=== PATIENT | female | born 1975 | race Caucasian/White ===

== ENCOUNTER 2016-11-29 15:41 | Inpatient (IN) | payer BC ==
--- NOTE | 2016-11-29 16:26 | EDPHY ---
H & P Smoking Status: Former smoker Time Seen by Provider: 11/29/16 15:58 HPI/ROS: CHIEF COMPLAINT: Anxiety, depression HISTORY OF PRESENT ILLNESS: 41-year-old female presents to the emergency department by private vehicle complaining of feeling extremely anxious. The patient states over last several months she has felt like she was on the verge of having a panic attack. She has been extremely stressed and overwhelmed. She has never been diagnosed with depression or anxiety. The patient denies suicidal ideation although she does wish that "someone would just come up behind me and put a gun to my head." She denies auditory or visual hallucinations. She denies homicidal ideation. She denies neck or back pain. Denies any other reported trauma. REVIEW OF SYSTEMS: Constitutional: No fever, no chills. Eyes: No double or blurry vision. ENT: No sore throat. Respiratory: No cough, no shortness of breath. Cardiac: No chest pain. Gastrointestinal: No abdominal pain, vomiting or diarrhea. Genitourinary: No dysuria. Musculoskeletal: No neck or back pain. Skin: No rashes. Neurological: No headache. (Jackelyn Tran) Past Medical/Surgical History: Tonsillectomy, , benign stomach tumor, osteoarthritis (Jackelyn Tran) Social History: (Jackelyn Tran) Physical Exam: General Appearance: Alert. Tearful, anxious Eyes: Pupils equal and round. Extraocular motions are all intact. ENT: Mouth: Mucous membranes moist. Respiratory: No wheezing, rhonchi, or rales, lungs are clear to auscultation. Cardiovascular: Regular rate and rhythm. Gastrointestinal: Abdomen is soft and nontender, no masses, no rebound or guarding, bowel sounds normal. Neurological: Alert and oriented x 3, cranial nerves II through XII grossly intact Skin: Warm and dry, no rashes. Musculoskeletal: Nontender to palpate along the cervical, thoracic or lumbar spine. Neck is supple. Extremities: Full range of motion and no peripheral edema. Psychiatric: Patient is oriented X 3, there is no agitation. (Jackelyn Tran) Constitutional: Initial Vital Signs Temperature (C) 36.8 C 11/29/16 15:46 Heart Rate 88 11/29/16 15:46 Respiratory Rate 18 11/29/16 15:46 Blood Pressure 160/128 H 11/29/16 15:46 O2 Sat (%) 96 11/29/16 15:46 O2 Delivery Mode Room Air Allergies/Adverse Reactions: No Known Allergies Allergy (Unverified 11/29/16 15:51) Home Medications: Medication Instructions Recorded NK [No Known Home Meds] 11/29/16 Medical Decision Making ED Course/Re-evaluation: 41-year-old female presents to the emergency department feeling extremely anxious and depressed. She has expressed suicidal ideation. She was evaluated by mental health and placed on an M1 hold. She is awaiting inpatient mental health placement. Patient will be admitted to Behavioral Health unit at [facility]. (Jackelyn Tran) Differential Diagnosis: Depression including functional and major depression, situational depression, medication side effect, drugs and alcohol abuse. (Jackelyn Tran) Other Provider: PHYSICIAN DOCUMENTATION: The patient was evaluated and managed by the Physician Drum Attendant and myself. I have reviewed the chart and agree with the findings and plan of care as documented. In addition, I examined the patient myself at 2027. History confirmed as patient expressing a desire to and unable to function. Placed on a mental health hold for danger to self and grave disability. Physical findings as follows: She feels exhausted now but is definitely calmer than on arrival. The patient will be transferred to [facility] for inpatient psychiatric hospital bed not available at this facility, in stable condition; accepting physician is Dr. Poon; 2100. I am the secondary supervising physician. (Tim Mckinley) - Data Points Laboratory Results: Laboratory Results 11/29/16 16:45 11/29/16 16:45 11/29/16 11/29/16 11/29/16 16:45 16:45 16:45 WBC RBC Hgb Hct MCV MCH MCHC RDW Plt Count MPV Neut % (Auto) Lymph % (Auto) [place] % (Auto) Eos % (Auto) Baso % (Auto) Nucleat RBC Rel Count Absolute Neuts (auto) Absolute Lymphs (auto) Absolute Monos (auto) Absolute Eos (auto) Absolute Basos (auto) Absolute Nucleated RBC Immature Gran % Immature Gran # Sodium 143 mEq/L mEq/L (134-144) Potassium 4.2 mEq/L mEq/L (3.5-5.2) Chloride 108 mEq/L mEq/L (97-110) Carbon Dioxide 23 mEq/l mEq/l (22-31) Anion Gap 12 mEq/L mEq/L (8-16) BUN 11 mg/dL mg/dL (7-23) Creatinine 0.8 mg/dL mg/dL (0.6-1.0) Estimated GFR > 60 Glucose 94 mg/dL mg/dL (70-100) Calcium 9.4 mg/dL mg/dL (8.5-10.4) TSH 2.830 uIU/mL uIU/mL (0.465-4.680) Beta HCG, Qual NEGATIVE Urine Opiates Screen NEGATIVE (NEGATIVE) Urine Barbiturates NEGATIVE (NEGATIVE) Ur Phencyclidine Scrn NEGATIVE (NEGATIVE) Ur Amphetamine Screen NEGATIVE (NEGATIVE) U Benzodiazepines Scrn NEGATIVE (NEGATIVE) Urine Cocaine Screen NEGATIVE (NEGATIVE) U Marijuana (THC) Screen NEGATIVE (NEGATIVE) 11/29/16 16:45 WBC 10.81 10^3/uL H 10^3/uL (3.80-9.50) RBC 4.52 10^6/uL 10^6/uL (4.18-5.33) Hgb 14.6 g/dL g/dL (12.6-16.3) Hct 41.1 % % (38.0-47.0) MCV 90.9 fL fL (81.5-99.8) MCH 32.3 pg pg (27.9-34.1) MCHC 35.5 g/dL g/dL (32.4-36.7) RDW 11.9 % % (11.5-15.2) Plt Count 239 10^3/uL 10^3/uL (150-400) MPV 9.4 fL fL (8.7-11.7) Neut % (Auto) 68.9 % % (39.3-74.2) Lymph % (Auto) 23.6 % % (15.0-45.0) [place] % (Auto) 5.9 % % (4.5-13.0) Eos % (Auto) 0.8 % % (0.6-7.6) Baso % (Auto) 0.5 % % (0.3-1.7) Nucleat RBC Rel Count 0.0 % % (0.0-0.2) Absolute Neuts (auto) 7.45 10^3/uL H 10^3/uL (1.70-6.50) Absolute Lymphs (auto) 2.55 10^3/uL 10^3/uL (1.00-3.00) Absolute Monos (auto) 0.64 10^3/uL 10^3/uL (0.30-0.80) Absolute Eos (auto) 0.09 10^3/uL 10^3/uL (0.03-0.40) Absolute Basos (auto) 0.05 10^3/uL 10^3/uL (0.02-0.10) Absolute Nucleated RBC 0.00 10^3/uL 10^3/uL (0-0.01) Immature Gran % 0.3 % % (0.0-1.1) Immature Gran # 0.03 10^3/uL 10^3/uL (0.00-0.10) Sodium Potassium Chloride Carbon Dioxide Anion Gap BUN Creatinine Estimated GFR Glucose Calcium TSH Beta HCG, Qual Urine Opiates Screen Urine Barbiturates Ur Phencyclidine Scrn Ur Amphetamine Screen U Benzodiazepines Scrn Urine Cocaine Screen U Marijuana (THC) Screen Medications Given: Discontinued Medications Lorazepam (Ativan) 1 mg PO EDNOW ONE Stop: 11/29/16 17:58 Last Admin: 11/29/16 19:43 Dose: 1 mg Departure - Departure Disposition: [facility] IP Clinical Impression: Anxiety Depression Qualifiers: Depression Type: unspecified Qualified Code(s): F32.9 - Major depressive disorder, single episode, unspecified Condition: Good
[2016-11-29 17:05] LABS: % IMMATURE GRANULYOCYTES 0.3 % (0.0-1.1); ABSOLUTE IMMATURE GRANULOCYTES 0.03 10^3/uL (0.00-0.10); ADD DIFF? NO; ADD MORPH? NO; ADD SCAN? NO; ATYPICAL LYMPHOCYTE FLAG 10 (0-99); FRAGMENT RBC FLAG 0 (0-99); HEMATOCRIT 41.1 % (38.0-47.0); HEMOGLOBIN 14.6 g/dL (12.6-16.3); LEFT SHIFT FLG 0 (0-99); LIPEMIA HEMOLYSIS FLAG 90 (0-99); MEAN CELL HEMOGLOBIN 32.3 pg (27.9-34.1); MEAN CELL HEMOGLOBIN CONCENTR. 35.5 g/dL (32.4-36.7); MEAN CELL VOLUME 90.9 fL (81.5-99.8); MEAN PLATELET VOLUME 9.4 fL (8.7-11.7); PLATELET CLUMPS FLAG 0 (0-99); PLATELET COUNT 239 10^3/uL (150-400); RED BLOOD CELL COUNT 4.52 10^6/uL (4.18-5.33); RED CELL DISTRIBUTION WIDTH 11.9 % (11.5-15.2)
[2016-11-29 17:17] LABS: ANION GAP 12 mEq/L (8-16); CALCIUM 9.4 mg/dL (8.5-10.4); CARBON DIOXIDE 23 mEq/l (22-31); CHLORIDE 108 mEq/L (97-110); CREATININE 0.8 mg/dL (0.6-1.0); GLOMERULAR FILTRATION RATE > 60; GLUCOSE 94 mg/dL (70-100); POTASSIUM 4.2 mEq/L (3.5-5.2); SODIUM 143 mEq/L (134-144)
[2016-11-29] MEDS ORDERED: LORazepam 1 MG TAB PO ONE (17:57)
[2016-11-29] MEDS ORDERED: NICOTINE POLACRILEX 2 MG GUM B PRN (23:53)
[2016-11-29] MEDS ORDERED: MAG HYDROX/AL HYDROX/SIMETH 30 ML UDCUP PO PRN (23:53)
[2016-11-29] MEDS ORDERED: MAGNESIUM HYDROXIDE 30 ML UDCUP PO PRN (23:53)
[2016-11-29] MEDS ORDERED: ACETAMINOPHEN 325 MG TAB PO PRN (23:53)
[2016-11-29] MEDS: LORazepam 0.5 MG TAB PO PRN (23:58)
[2016-11-30 06:29] VITALS: PULSE 83; RESP 16
[2016-11-30] MEDS: CITALOPRAM 20 MG TAB PO SCH (12:32)
--- NOTE | 2016-11-30 15:53 | BCON ---
[f rep st] BEHAVIORAL HEALTH CONSULTATION INTERNAL MEDICINE CONSULTATION DATE OF CONSULTATION: 11/30/2016 REFERRING PHYSICIAN: Neeru Poon MD REASON FOR REFERRAL: Medical clearance for inpatient behavioral health stay. HISTORY OF PRESENT ILLNESS: The patient came to the emergency department complaining of feeling extremely nervous as if she were on the verge of having a panic attack. She has had recent stresses. She was evaluated by the mental health team and admitted for further psychiatric care. Currently, she complains of feeling fatigued. 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 Otherwise she is without any acute medical complaints. PAST MEDICAL HISTORY: 1. Obesity. 2. History of a benign gastric tumor. 3. Obstructive sleep apnea. PAST SURGICAL HISTORY: She has had soft palate reconstruction and tonsillectomy for the sleep apnea, and she has had a laparotomy for removal of the gastric tumor. Additionally, she has had a section . MEDICATIONS: She was on no medications prior to admission. ALLERGIES: There are no known drug allergies. SOCIAL HISTORY: She is . She lives with her . She has an adult daughter and grandchild. 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 She quit smoking in February of this year. She uses rare alcohol. FAMILY HISTORY: Noncontributory. REVIEW OF SYSTEMS: Other than as in HPI, a 10-point review of systems was negative. She reports a feeling of fullness in her chest. She denies cough or dyspnea, palpitations or chest pain. She does not have dyspnea with exertion, and other than that a 10-point review of systems is negative. PHYSICAL EXAM: VITAL SIGNS: Blood pressure was 122/59, but early this morning and last night it was 195 to 200 over 99/107, heart rate last night was 83, respiratory rate was 16, oxygen saturation was 93% on room air, temperature is 37.1 degrees centigrade. Her weight is listed as 154 kg for a body mass index of 48.8. GENERAL: This is a very obese woman who appears her chronologic age. Cooperative and in no acute distress. HEENT: Extraocular movements are intact. Pupils are equal, round, and reactive to light. Mucous membranes are moist. There are postsurgical changes to the soft palate. There is no posterior oropharyngeal mucus. Dentition is in good condition. NECK: Supple. HEART: There is a regular rate and rhythm with no murmurs, rubs, or gallops. LUNGS: Clear to auscultation bilaterally. ABDOMEN: Soft, nontender, nondistended with normoactive bowel sounds. EXTREMITIES: There is no cyanosis or clubbing. There is trace to 1+ edema bilaterally in the pretibial area of her lower legs. NEUROLOGIC: She is alert and oriented x3. Cranial nerves 2- 12 are grossly intact. There is no focal weakness, and sensation is intact to light touch. LABORATORY STUDIES: Drawn in the emergency department. CBC showed a mildly elevated white count at 10.1 with absolute neutrophils of 7.45 but no left shift. Serum chemistry revealed normal renal function and electrolytes. TSH was normal at 2.8. Beta HCG was negative for . Toxicology screen in the urine was negative for any substances of abuse. ASSESSMENT AND RECOMMENDATIONS: 1. Mental health issues. Pending further evaluation and management per Psychiatry and the mental health team. 2. Obesity. On review of the [facility] evaluation, it appears that this has been somewhat of a struggle for her over the years. Advise consideration of avoiding psychiatric medications which could worsen weight gain. 3. Elevated blood pressure. With her obesity she certainly is at risk for jenny hypertension; however, she was normotensive after the elevated blood pressures last night. Advise continued monitoring for blood pressures and consider initiating medication if her blood pressure remains elevated. 4. Edema of unclear etiology. Her renal function is normal. It could be that with her body habitus she has a component of obesity hypoventilation and pulmonary hypertension. However, she denies respiratory symptoms. Advise continued monitoring and consider further evaluation if it worsens or becomes bothersome, otherwise she can have further evaluation with her primary care provider after discharge. I see no medical contraindications to the patient's continued stay on the inpatient behavioral health unit or to any psychiatric medications or procedures. Thank you very much for including me in the care of the patient and please do not hesitate to contact me or the hospitalist service should there be need for further medical evaluation. /[id number]/MODL MTDD
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
[2016-11-30] MEDS: LORazepam 0.5 MG TAB PO PRN (22:06)
[2016-12-01 01:08] VITALS: BP 136/62; TEMP 98.5; O2SAT 94
[2016-12-01] MEDS: CITALOPRAM 20 MG TAB PO SCH (08:13)
== END 2016-12-01 12:34 | disposition home or self-care (01) | DRG 885 ==
LOC: BBEH 21:42
PROVIDERS: ADMIT Psychiatry & Neurology Psychiatry; ATTEND Psychiatry & Neurology Psychiatry
DX: F33.2 Major depressive disorder, recurrent severe without psychotic features (principal); F41.9 Anxiety disorder, unspecified; G47.52 REM sleep behavior disorder; Z56.6 Other physical and mental strain related to work; R60.9 Edema, unspecified; R03.0 Elevated blood-pressure reading, without diagnosis of hypertension; E66.9 Obesity, unspecified; Z68.42 Body mass index [BMI] 45.0-49.9, adult; I73.00 Raynaud's syndrome without gangrene; Z87.891 Personal history of nicotine dependence
CPT/HCPCS: 80305